=== PATIENT | female | born 1985 ===

== ENCOUNTER 2018-10-28 16:51 | Emergency (ER) | payer OTHER ==
[2018-10-28 16:57] VITALS: BP 99/61; PULSE 78; RESP 16; TEMP 98.1; O2SAT 100
--- NOTE | 2018-10-28 17:02 | C.PDOC ---
History Of Present Illness 33 yr old female w/ no ppmhx p/w L sided shoulder pain, R+ L knee pain and L elbow pain after fall. Pt notes that 30 minutes prior she slipped an fell onto her L knees and L arm. No LOC or blood thinner usage. No neck pain. No head impact. She notes taking advil after the fall. No syncopal episode. She notes being able to walk after she fell without issue. No family hx of bleeding issues. Tetanus UTD. No other complaints [employer] used. Time Seen by Provider: 10/28/18 17:02 Chief Complaint (Nursing): Upper Extremity Problem/Injury Past Medical History Vital Signs: Last Vital Signs Temp 98.1 F 10/28/18 16:55 Pulse 78 10/28/18 16:55 Resp 16 10/28/18 16:55 BP 99/61 L 10/28/18 16:55 Pulse Ox 100 10/28/18 16:55 Family History: States: Unknown Family Hx - Social History Hx Alcohol Use: No Hx Substance Use: No - Immunization History Hx Tetanus Toxoid Vaccination: No Hx Influenza Vaccination: No Review Of Systems Constitutional: Negative for: Fever, Chills, Weakness, Malaise Eyes: Negative for: Pain, Vision Change, Eyelid Inflammation ENT: Negative for: Ear Pain, Ear Discharge, Nose Pain, Nose Congestion, Mouth Pain Cardiovascular: Negative for: Chest Pain, Palpitations, Orthopnea, Edema, Light Headedness Respiratory: Negative for: Cough, Shortness of Breath Gastrointestinal: Negative for: Nausea, Vomiting, Abdominal Pain, Constipation, Melena Genitourinary: Negative for: Dysuria, Frequency Musculoskeletal: Positive for: Shoulder Pain (Left), Arm Pain (L elbow), Leg Pain (b/l knee, over abrasion, full extension- good passive and active ROM w/ out pain. ). Negative for: Back Pain, Hand Pain, Foot Pain Neurological: Negative for: Weakness, Numbness, Incoordination Physical Exam - Physical Exam Appears: Well, Non-toxic Head: Atraumatic, Normacephalic Eye(s): bilateral: Normal Inspection, PERRL, EOMI Ear(s): Bilateral: Normal Nose: Normal Oral Mucosa: Moist Tongue: Normal Appearing Lips: Normal Appearing Teeth: Normal Dentition Gingiva: Normal Appearing Throat: Normal Neck: Normal, Normal ROM, No Decreased ROM, Trachea Midline, No Midline Cervical Tenderness, Paracervical Tenderness, No Step Off Deformity, Supple, Other (no meningeal signs) Chest: Symmetrical, No Deformity, No Tenderness, Ecchymosis (L shoulder) Cardiovascular: Rhythm Regular, No Edema, No Friction Rub, No Murmur, No JVD Respiratory: Normal Breath Sounds Gastrointestinal/Abdominal: Normal Exam, Soft, No Tenderness, No Distention, No Guarding, No Rebound Back: Normal Inspection, No CVA Tenderness, No Vertebral Tenderness, No Paraspinal Tenderness, No Straight Leg Raising Extremity: Normal ROM, Capillary Refill (normal), Other (no scaphoid tenderness. fully N/V intact. L shoulder pain over contusion. L elbow pain, no contusions noted. B/L 1cm superficial abrasions mildly ttp. no active ooze or bleeding noted) Extremity: Bilateral: Hips Non-Tender, No Pedal Edema, Normal Color And Temperature, Normal ROM, Pelvis-Stable Pulses: Left Radial: Normal, Right Radial: Normal Neurological/Psych: Oriented x3, Normal Speech, Normal Cognition, Normal Cranial Nerves, No Cerebellar Signs, Normal Motor Gait: Steady Extremity: Right: No Drift, Left: No Drift, Upper: No Drift, Lower: No Drift ED Course And Treatment O2 Sat by Pulse Oximetry: 100 Medical Decision Making Medical Decision Makin yr old female p/w [facility]. fall onto L arm. No head trauma. No syncopal episode. Full ROM. No CMT. No scaphoid tenderness. No rash. tetanus UTD. Likely contusion at L shoulder w/ out dislocation or fx. Will seek imaging 1927 Xray negative pain improved walking well neuro exam remains unremarkable instructed pt to f/u w/ PMD, given sling for possible repeat XR if contineud pain pt agreeable to plan. clear for d/c home Disposition - Disposition Disposition Time: 19:19 Condition: GOOD Forms: [facility] (Vietnamese) - Clinical Impression Clinical Impression: Lung nodule, Fall, Contusion
--- NOTE | 2018-10-28 18:05 | RAD ---
Date of service: 10/28/2018 HISTORY: fall COMPARISON: No prior. TECHNIQUE: Chest PA and lateral FINDINGS: LUNGS: No active pulmonary disease. Small calcified granuloma left upper lobe overlying left posterior 5th rib. PLEURA: No significant pleural effusion identified. No pneumothorax apparent. CARDIOVASCULAR: No aortic atherosclerotic calcification present. Normal cardiac size. No pulmonary vascular congestion. OSSEOUS STRUCTURES: No significant abnormalities. VISUALIZED UPPER ABDOMEN: Normal. OTHER FINDINGS: None. IMPRESSION: No active disease. Small calcified granuloma left upper lobe
--- NOTE | 2018-10-28 18:08 | RAD ---
Date of service: 10/28/2018 PROCEDURE: Radiographs of the Left Shoulder HISTORY: L shoulder pain s/p fall COMPARISON: Correlation made with concurrent radiograph of the chest FINDINGS: BONES: Normal. No fracture. JOINTS: Normal. Glenohumeral and acromioclavicular joints preserved. No osteoarthritis. SOFT TISSUES: Normal. OTHER FINDINGS: Small calcified granuloma left upper lobe again noted IMPRESSION: Normal radiographs of the left shoulder.
--- NOTE | 2018-10-28 18:10 | RAD ---
Date of service: 10/28/2018 PROCEDURE: Radiographs of the left elbow. HISTORY: fall COMPARISON: No prior. FINDINGS: BONES: No evidence of acute displaced fracture nor dislocation. The osseous structures intact.. JOINTS: No significant degenerative osteoarthritis. SOFT TISSUES: Normal. JOINT EFFUSION: None. OTHER FINDINGS: None IMPRESSION: No evidence of acute displaced fracture nor dislocation
== END 2018-10-28 20:05 | disposition home or self-care (01) ==
LOC: C.ER 16:51
DX: S40.012A Contusion of left shoulder, initial encounter (principal); W18.30XA Fall on same level, unspecified, initial encounter; R91.1 Solitary pulmonary nodule